=== PATIENT | male | born 1950 | race Caucasian/White ===

== ENCOUNTER 2020-08-31 20:16 | Emergency (ER) | payer MEDICARE ==
[~2020-08-31] VITALS: Ht 177.8 cm; Wt 113.4 kg
[~2020-08-31 20:16] MED LIST: ALLOPURINOL100 MG; ALLOPURINOL300 MG PO; ASPIRIN EC81 MG PO; ATORVASTATIN CA80 MG PO; AUGMENTIN 875-1 EACH PO; BENAZEPRIL HCL20 MG PO; CARVEDILOL25 MG PO; CLOPIDOGREL75 MG PO; COREG25 MG PO; CYANOCOBALAMIN MC; DILTIAZEM ER180 M2 PO; DOXAZOSIN MESYLA1 MG PO; DOXAZOSIN MESYLA8 MG PO; EFFEXOR XR150 MG PO; EFFEXOR XR37.5 MG PO; ESOMEPRAZOLE MA20 MG PO; FENOFIBRATE48 MG PO; FERROUS SULFAT325 MG PO; FUROSEMIDE40 MG PO; HUMALOG100 UNITS/; HYDRALAZINE HCL25 MG PO; HYDROCHLOROTHIA25 MG PO; IRON325 M1 PO; IRON55 MG PO; ISOSORBIDE DINI10 MG PO; ISOSORBIDE MONO30 MG PO; LANTUS100 UNIT/1 SUB-Q; LANTUS100 UNITS/ SUB-Q; LASIX20 MG PO; LASIX80 MG PO; LIPITOR80 MG PO; LOTENSIN40 MG PO; LOVAZA1 GM PO; NEXIUM20 MG; NITROSTAT0.4 MG SL; NORCO 5-325 TA1 EACH PO; NORVASC5 MG PO; NOVOLOG100 UNITS/; OMEPRAZOLE20 MG PO; PLAVIX75 MG PO; PRILOSEC20 MG PO; RANEXA500 MG PO; SLOW-MAG71.5 MG PO; TORSEMIDE20 MG; TOUJEO SOL300 UNIT/1 SQ; TRADJENTA5 MG PO; TRICOR145 MG PO; VENLAFAXINE H37.5 M1 PO; VITAMIN B COMP1 EACH PO; VITAMIN C500 M1 PO; VITAMIN D50000 UNI1 PO; ZETIA10 MG PO
--- NOTE | 2020-09-01 21:14 | EKG ---
[facility] [address] [facility] [place] [id number] Signed Sinus rhythm with occasional premature ventricular complexes Nonspecific T wave abnormality Abnormal ECG When compared with ECG of 08-AUG-2018 14:33, premature ventricular complexes are now present Nonspecific T wave abnormality now evident in Inferior leads Nonspecific T wave abnormality, worse in Lateral leads Confirmed by PAULY AGUILAR DO ([id number]) on 09/01/2020 9:14:19 PM Electronically Signed By: PAULY AGUILAR DO 09/01/20 [id number] PATIENT NAME: VILMA EMMANUEL Electrocardiogram DATE OF : 50 PHYSICIAN: PAULY AGUILAR DO REPORT #: [id number] REPORT IS CONFIDENTIAL AND NOT TO BE RELEASED WITHOUT AUTHORIZATION
== END 2020-09-01 00:26 | disposition short-term general hospital (02) ==
LOC: ED 20:16
DX: U07.1 COVID-19 (principal); I46.9 Cardiac arrest, cause unspecified; J12.89 Other viral pneumonia; J96.00 Acute respiratory failure, unspecified whether with hypoxia or hypercapnia; I10 Essential (primary) hypertension; E11.9 Type 2 diabetes mellitus without complications; F17.200 Nicotine dependence, unspecified, uncomplicated; Z79.899 Other long term (current) drug therapy; Z79.4 Long term (current) use of insulin; Z79.82 Long term (current) use of aspirin
CPT/HCPCS: 31500; 36600; 51702; 71045; 80053; 81001; 82803; 83605; 83735; 83880; 84484; 85025; 93005; 93010; 94002; 94003; 94799; 99291; 99292; J0171; J0456; J0696; J1100; J1940; J7060